=== PATIENT | female | born 1995 | race Caucasian/White ===

== ENCOUNTER 2018-09-28 16:17 | Outpatient (CLI) | payer BC ==
[~2018-09-28] VITALS: Ht 165.1 cm; Wt 93.3 kg
[2018-09-28] MEDS ORDERED: HEPA500021 IJ (17:17)
[2018-09-28] MEDS ORDERED: ASPI-817 PO (17:17)
[2018-09-28] MEDS ORDERED: LABE100T7 PO (17:17)
[2018-09-28] MEDS ORDERED: MAGN400T27 PO (17:17)
[2018-09-28] MEDS ORDERED: HYDR25TA6 PO (17:17)
[2018-09-28 17:18] VITALS: BP 134/80; PULSE 80; RESP 18; Ht 165.1 cm; Wt 93.3 kg
--- NOTE | 2018-09-28 21:42 | TRIAGE ---
OB Triage Datetime Report Generated by CPN: 09/28/2018 21:42 Datetime: 09/28/2018 18:00 Stage of : OB Triage Maternal Assessment Level of Consciousness: Fully Conscious Labor Evaluation Frequency: NONE Monitor Mode: External Resting Tone Puryear: Relaxed Heart Rate FHR Baseline Rate: 125 Monitor Mode: External US Variability: Moderate 6-25 bpm Accelerations: 15X15 Decelerations: None Category: Category I Pain Assessment Pain Scale: 0 Pain Goal: 3 Vaginal Exam Membrane Status: Intact Vaginal Bleeding: None Datetime: 09/28/2018 17:09 Assessment Type: Triage Maternal Assessment Level of Consciousness: Fully Conscious DTR's/Clonus: DTRs 2+; No Clonus Headache: Denies Blurred Vision: No Respiratory Effort: Unlabored; Regular Rhythm; Equal Expansion Breath Sounds, Left: Clear and Equal Breath Sounds, Right: Clear and Equal Nausea/Vomiting: Denies RUQ Epigastric Pain: Denies Lower Extremities Edema: None Degree: None Upper Extremities Edema: None Degree: None Facial Edema: None Fall Risk Assessment History of Falling: (0) No Secondary Diagnosis: (0) No Ambulatory Aid: (0) Bedrest/Nurse Assist IV Therapy: (0) No Gait: (0) Normal/Bedrest/Immobile Mental Status: (0) Oriented to Own Ability Fall Score: 0 Fall Risk Score Definition: No Risk: No action required Datetime: 09/28/2018 17:07 Time of Arrival: 09/28/2018 16:11 EGA: 30.3 Arrived By: Ambulatory Arrived From: Office Chief Complaint: PT. SENT IN FOR EVAL. OF HBP Movement: Present Contractions: Denies/Absent Rupture of Membranes: Denies Vaginal Bleeding: None Vaginal Discharge: Denies Recent Sexual Intercouse: Denies Abdominal Trauma: Not Applicable Patient Complaints: None Time Provider Notified: 09/28/2018 16:30 Provider Notified: RONNY Initial Plan: PIH PANEL/BPP/HGA1C/NST/ Datetime: 09/28/2018 17:06 Monitor Mode: External Monitor Mode: External US
== END 2018-09-28 20:20 | disposition home or self-care (01) ==
LOC: L-D 16:17 → OBT 16:17
PROVIDERS: ATTEND Obstetrics & Gynecology Obstetrics
DX: O16.3 Unspecified maternal hypertension, third trimester (principal); Z3A.30 30 weeks gestation of pregnancy
CPT/HCPCS: 76818; 80053; 81001; 83036; 84560; 85025; 85384; 85610; 85730; G0463

== ENCOUNTER → 2018-09-29 | Outpatient (CLI) | payer BC ==
--- NOTE | 2018-09-28 21:20 | PN ---
Triage Information Date/Time September 28, 2018 Reason for visit: Rule out severe preeclampsia Weeks of Gestation 30 weeks /Para 3 para 2 Diabetes: none Hypertention: essential Additional information 23-year-old with IUP at 30 weeks and high risk due to history of chronic hypertension secondary to nephrotic syndrome and, nephritis in the past as well as pseudotumor cerebri patient currently under care of. [employer] presented. With complaint of right upper quadrant pain. Her blood pressure had been currently well controlled with labetalol and hydrochlorothiazide. She is a status post admission in the past in [facility] due to elevated blood pressure and had been ruled out for severe preeclampsia. Status post 1 full course of steroid about 4 weeks ago. She had been seen last week in nephrology clinic on was noted to have slightly elevated liver function tests. She continued to have well-controlled blood pressure. Reports lately experiencing right upper quadrant pain and epigastric pain. Her headache improved after she started on hydrochlorothiazide. She had a history of vision changes in the left eye due to macular degeneration in the past. Denies any change in her vision. Patient was sent to triage for Rule out severe preeclampsia and for serial blood pressure monitoring. Denies any leaking of fluid, vaginal bleeding decreased movement Objective Heart Rate: 130's Contractions: None Exam General appearance: Alert and oriented x4 does not appear to be in any acute distress Abdomen: Soft, gravid, fundal height consistent with gestational age, possible mild ascites Scattered light ecchymosis at the area of heparin injection noted Symptoms: No calf tenderness, no click no edema no cords palpable Results/Medications Imaging Results PROCEDURE: US Obstetrical , limited CLINICAL INDICATION: Biophysical profile for well being, hypertension. TECHNIQUE: Multiple real-time images were acquired of the patient's maternal abdomen utilizing a curved array transducer. COMPARISON: None FINDINGS: There is a single live intrauterine fetus in a oblique / breech presentation with the head to the maternal right. The placenta is implanted posteriorly and is grade 1. . The amniotic fluid index measures 25.1 cm. The heart rate is 131 beats per minute. Biophysical profile: Tone: 2 breathin Gross body movement: 2 Amniotic fluid: 2 Biophysical profile score: 8/8 IMPRESSION: 1. Single live intrauterine fetus, oblique / breech presentation with the head to the maternal right. The heart rate is 131 bpm. 2. Posteriorly and is grade 1. 3. Amniotic fluid index 25.1 cm. 4. Biophysical profile score: 8/8. Disposition: Discharge Assessment/Plan IUP at 30 weeks Right upper quadrant pain likely musculoskeletal No evidence of severe preeclampsia based on laboratory finding and clinical picture Blood pressure well controlled Nephrotic syndrome, being followed by plaster block layer Repeat 24-hour urine protein collection. Processes started today. Polyhydramnios, unclear etiology, patient was seen by perinatologist and per patient size is larger than dates Proceed with repeat glucose tolerance test Patient will be discharged home labor precautions kick count and preeclampsia precaution discussed with patient and signs and symptoms discussed Follow-up in 1 week in the office or sooner as needed Follow-up with perinatology office as a scheduled History of x2 desire to have BTL with repeat Consent has been signed Plan of care discussed with patient. Patient verbalized understanding. All questions were answered to the patient's best satisfaction. BETH JEFFERSON MD Sep 28, 2018 21:20
[~2018-09-29] MED LIST: ASPI-817 PO; HEPA500021 IJ; HYDR25TA6 PO; LABE100T7 PO; MAGN400T27 PO
== END | disposition home or self-care (01) ==
LOC: OBT 18:09 → L-D 18:10 → OBT 18:10 → L-D 18:13
PROVIDERS: ATTEND Obstetrics & Gynecology Obstetrics
DX: O16.3 Unspecified maternal hypertension, third trimester (principal); Z3A.30 30 weeks gestation of pregnancy
CPT/HCPCS: 82575